=== PATIENT | male | born 1965 | race African-American/Black ===

== ENCOUNTER 2022-05-18 07:34 | Outpatient (CLI) | payer BC ==
[2022-05-18] MEDS ORDERED: Iopamidol 370 76% 100 ML VIAL ONE (09:38)
== END 2022-05-18 07:35 | disposition home or self-care (01) ==
LOC: CT 07:34
PROVIDERS: ATTEND Internal Medicine Cardiovascular Disease
DX: R07.9 Chest pain, unspecified (principal); I71.23 Aneurysm of the descending thoracic aorta, without rupture; I71.21 Aneurysm of the ascending aorta, without rupture
CPT/HCPCS: 71260; Q9967